=== PATIENT | female | born 1980 | race Caucasian/White ===

== ENCOUNTER → 2016-05-03 | Outpatient (CLI) | payer OTHER ==
[~2016-05-03] MED LIST: CHOL1000 PO; FERR1TAB23; OMEP10CA2 PO; ONDA4TAB46 PO; PRENTAB26 PO; SERT25TA PO
== END | disposition home or self-care (01) ==
LOC: C.PAPS 09:33
PROVIDERS: ATTEND Obstetrics & Gynecology
DX: Z12.4 Encounter for screening for malignant neoplasm of cervix (principal)